=== PATIENT | female | born 1955 | race Hispanic/Latino ===

== ENCOUNTER 2019-10-31 07:49 | Outpatient (CLI) | payer MEDICARE ==
--- NOTE | 2019-10-31 09:07 | BD ---
DEXA BONE MINERAL DENSITY STUDY: HISTORY: Osteoporosis screening. COMPARISON: None. FINDINGS: Lumbar Spine: BMD (g/cm2) L1 0.785 T-Score: -1.9 -0.2 L2 0.788 T-Score: -2.2 -0.4 L3 0.926 T-Score: -1.4 0.5 L4 0.850 T-Score: -1.9 0.0 L1-L4 0.836 T-Score: -1.9 -0.1 WHO classification: Osteopenia. Right: Femoral Neck: 0.496 T-Score: -3.2 -1.6 Total Femur: 0.607 T-Score: -2.7 -1.5 WHO classification: Osteoporosis. Impression: Osteoporosis with elevated fracture risk. POS: OFF
== END 2019-10-31 07:50 | disposition home or self-care (01) ==
LOC: BICMAMMO 07:49
PROVIDERS: ATTEND Family Medicine
DX: Z12.31 Encounter for screening mammogram for malignant neoplasm of breast (principal); M81.6 Localized osteoporosis [Lequesne]
CPT/HCPCS: 77063; 77067; 77080

== ENCOUNTER 2019-11-12 09:51 | Outpatient (CLI) | payer MEDICARE ==
--- NOTE | 2019-11-12 11:27 | MMO ---
Left Breast MAMMO Unilat Diag DDI LT+RYANN. CLINICAL HISTORY: Patient is 64 years old and is seen for additional evaluation requested at current screening. The patient has no family history of breast cancer. The patient has no personal history of cancer. VIEWS: The views performed were: left craniocaudal spot compression with tomosynthesis; left mediolateral oblique spot compression with tomosynthesis; and left mediolateral with tomosynthesis. FILMS COMPARED: The present examination has been compared to prior imaging studies performed at [facility] on 10/31/2019 and 11/12/2019. This study has been interpreted with the assistance of computer-aided detection. MAMMOGRAM FINDINGS: There are scattered fibroglandular densities. Finding 1: There is a round mass measuring 4 millimeters with circumscribed margins seen in the left breast at 3 o'clock. Circumscribed hypoechoic mass on ultrasound. Finding 2: There is an oval mass measuring 4 x 5 mm with circumscribed margins seen in the left breast at 4 o'clock. Complicated small cyst IMPRESSION: FINDING 1: MASS IN THE LEFT BREAST AT 3 O'CLOCK IS PROBABLY BENIGN. FOLLOW-UP IN 6 MONTHS IS RECOMMENDED. FINDING 2: MASS IN THE LEFT BREAST AT 4 O'CLOCK IS PROBABLY BENIGN. FOLLOW-UP IN 6 MONTHS IS RECOMMENDED. THE RESULTS OF THIS EXAM WERE SENT TO THE PATIENT. ACR BI-RADS Category 3 - Probably benign finding - short interval follow-up suggested. [facility] will notify the patient of the need for additional imaging services. MAMMOGRAPHY NOTE: 1. A negative mammogram report should not delay a biopsy if a dominant of clinically suspicious mass is present. 2. Approximately 10% to 15% of breast cancers are not detected by mammography. 3. Adenosis and dense breasts may obscure an underlying neoplasm. Reported by: DAVID MARTINEZ MD Electonically Signed: [id number]
--- NOTE | 2019-11-12 12:20 | ULT ---
LEFT BREAST ULTRASOUND: HISTORY: Followup abnormal finding on mammogram. FINDINGS: In the 3 o'clock position of the left breast 2 cm from the nipple there is a very superficial round c ircumscribed 0.3 cm diameter mass. This corresponds to the round mass on mammogram. In the left breast at 4 o'clock position 2 cm from the nipple there is an oval circumscribed somewhat mixed-appearing solid and cystic mass measuring 0.3 x 0.4 x 0.5 cm in size, possibly a complicated-a ppearing cyst. This corresponds to the oval mass on mammogram. IMPRESSION: Two small circumscribed nodules in the left breast, one at 3 o'clock, the other one at 4 o'clock. By both mammogram and ultrasound these have a probably benign appearance. Followup 6-month left unilat eral diagnostic mammogram and left breast ultrasound is recommended for further assessment. Findings were discussed with the patient who is in agreement to undergo a short-term surveillance 6-m [facility] followup mammogram and ultrasound.
== END 2019-11-12 09:52 | disposition home or self-care (01) ==
LOC: BICMAMMO 09:51
PROVIDERS: ATTEND Family Medicine
DX: R92.1 Mammographic calcification found on diagnostic imaging of breast (principal); N63.21 Unspecified lump in the left breast, upper outer quadrant; N63.23 Unspecified lump in the left breast, lower outer quadrant
CPT/HCPCS: 76642; 77065; G0279

== ENCOUNTER 2020-05-18 10:03 | Outpatient (CLI) | payer MEDICARE ==
--- NOTE | 2020-05-18 10:57 | MMO ---
Left Breast MAMMO Unilat Diag DDI LT+RYANN. CLINICAL HISTORY: Patient is 64 years old and is seen for diagnostic exam. The patient has no family history of breast cancer. The patient has no personal history of cancer. VIEWS: The views performed were: left craniocaudal with tomosynthesis; left mediolateral oblique with tomosynthesis; and left mediolateral with tomosynthesis. FILMS COMPARED: The present examination has been compared to prior imaging studies performed at [facility] on 10/31/2019, 11/12/2019 and 05/18/2020. This study has been interpreted with the assistance of computer-aided detection. MAMMOGRAM FINDINGS: There are scattered fibroglandular densities. There are two stable masses with circumscribed margins seen in the lower-outer region of the left breast. STABLE ULTRASOUND IMPRESSION: STABLE MASSES IN THE LEFT BREAST ARE PROBABLY BENIGN. FOLLOW-UP IN 6 MONTHS IS RECOMMENDED. THE RESULTS OF THIS EXAM WERE SENT TO THE PATIENT. ACR BI-RADS Category 3 - Probably benign finding - short interval follow-up suggested. [facility] will notify the patient of the need for additional imaging services. MAMMOGRAPHY NOTE: 1. A negative mammogram report should not delay a biopsy if a dominant of clinically suspicious mass is present. 2. Approximately 10% to 15% of breast cancers are not detected by mammography. 3. Adenosis and dense breasts may obscure an underlying neoplasm. Reported by: DAVID MARTINEZ MD Electonically Signed: [id number]
--- NOTE | 2020-05-18 12:39 | ULT ---
LEFT BREAST ULTRASOUND: Date: 05/18/2020 HISTORY: Patient returns for 6 month follow-up to evaluate two nodular densities in the left breast seen on pr ior mammogram and ultrasound. FINDINGS: In the 3-4 o'clock position of the left breast, there is again noted to be a round circumscribed hypo echoic mass approximately 0.3 cm in size, as well as an oval circumscribed mass measuring approximate ly 0.3 x 0.4 x 0.5 cm in size. No evidence for associated shadowing or architectural distortion or mi crocalcifications. IMPRESSION: BI-RADS Category 3 - Probably benign findings. Two stable circumscribed slightly hypoechoic masses in the left breast. A 6 month follow-up bilateral mammogram and left breast ultrasound recommended for further assessment. The facility will notify patient of need for additional imaging services. POS: OFF
== END 2020-05-18 10:04 | disposition home or self-care (01) ==
LOC: BICMAMMO 10:03
PROVIDERS: ATTEND Family Medicine
DX: N63.20 Unspecified lump in the left breast, unspecified quadrant (principal)
CPT/HCPCS: 76642; 77065; G0279

== ENCOUNTER 2020-11-19 08:51 | Outpatient (CLI) | payer MEDICARE | END 2020-11-19 08:52 | disposition home or self-care (01) | LOC: BICMAMMO 08:51 | PROVIDERS: ATTEND Family Medicine | DX: N63.20 Unspecified lump in the left breast, unspecified quadrant (principal); R92.8 Other abnormal and inconclusive findings on diagnostic imaging of breast | CPT/HCPCS: 77066; G0279 ==

== ENCOUNTER 2021-02-17 10:00 | Outpatient (CLI) | payer MEDICARE | END 2021-02-17 10:01 | disposition home or self-care (01) | LOC: BICRAD 10:00 | PROVIDERS: ATTEND Family Medicine | DX: M41.25 Other idiopathic scoliosis, thoracolumbar region (principal); M54.2 Cervicalgia; M47.812 Spondylosis without myelopathy or radiculopathy, cervical region; M47.816 Spondylosis without myelopathy or radiculopathy, lumbar region; M47.814 Spondylosis without myelopathy or radiculopathy, thoracic region | CPT/HCPCS: 72040; 72072; 72100 ==

== ENCOUNTER 2021-02-18 12:11 | Outpatient (CLI) | payer MEDICARE | END 2021-02-18 12:12 | disposition home or self-care (01) | LOC: BICMAMMO 12:11 | PROVIDERS: ATTEND Internal Medicine | DX: M81.0 Age-related osteoporosis without current pathological fracture (principal) | CPT/HCPCS: 77080 ==

== ENCOUNTER 2021-07-21 08:40 | Outpatient (CLI) | payer MEDICARE | END 2021-07-21 08:41 | disposition home or self-care (01) | LOC: CT 08:40 | PROVIDERS: ATTEND Internal Medicine Cardiovascular Disease | DX: I82.220 Acute embolism and thrombosis of inferior vena cava (principal) | CPT/HCPCS: 71260; 74177; 82565 ==

== ENCOUNTER 2021-07-22 16:54 | Emergency (ER) | payer MEDICARE ==
[2021-07-22 17:30] LABS: #Basophils 0.1 thou/uL (0.0-0.2); #Eosinphils 0.2 thou/uL (0.0-0.7); #Lymphocytes 1.7 thou/uL (1.20-3.40); #Monocytes 0.4 thou/uL (0.11-0.59); #Neutrophils 2.4 thou/uL (1.40-6.50); %Basophils 1.4 % (0.0-1.0); %Eosinophils 3.3 % (0.0-10.0); %Lymphocytes 36.1 % (21.0-51.0); %Monocytes 8.6 % (0.0-10.0); %Neutrophils 50.6 % (42.0-75.0); Hemoglobin 11.9 g/dL (12.0-16.0); Mean Corpuscular HGB CONC 34.8 g/dL (32.0-36.0); Mean Corpuscular Volume 94.7 fL (78.0-98.0); Mean Platelet Volume 7.9 fL (7.4-10.4); Platelet Count 201 thou/uL (130-400); RBC Distribution Width 12.1 % (11.5-14.5); Red Blood Cell (RBC) Count 3.61 mill/uL (4.20-5.40); White Blood Cell (WBC) Count 4.8 thou/uL (4.8-10.8)
[2021-07-22 17:58] LABS: ALT (SGPT) 12 U/L (8-55); AST (SGOT) 17 U/L (5-34); Albumin 4.1 g/dL (3.4-4.8); Alkaline Phosphatase 32 U/L (40-110); Anion Gap 14 mmol/L (10-20); BUN (Urea Nitrogen) 12 mg/dL (9.8-20.1); Bilirubin, Total 0.2 mg/dL (0.2-1.2); Calc. Creatinine Clearance 0 mL/min (70-130); Calcium 9.1 mg/dL (7.8-10.44); Carbon Dioxide 27 mmol/L (23-31); Chloride 95 mmol/L (98-107); Globulin 2.5 g/dL (2.4-3.5); Glucose 90 mg/dL (80-115); Potassium 3.7 mmol/L (3.5-5.1); Protein, Total 6.6 g/dL (5.8-8.1); Sodium 132 mmol/L (136-145)
== END 2021-07-22 18:36 | disposition home or self-care (01) ==
LOC: ERS 16:54
DX: R07.89 Other chest pain (principal); E03.9 Hypothyroidism, unspecified; Z79.899 Other long term (current) drug therapy; Z79.01 Long term (current) use of anticoagulants
CPT/HCPCS: 36415; 71045; 80053; 84484; 85025; 93005

== ENCOUNTER 2021-08-11 11:38 | Inpatient (IN) | payer MEDICARE ==
[2021-08-11 12:45] LABS: #Basophils 0.1 thou/uL (0.0-0.2); #Eosinphils 0.1 thou/uL (0.0-0.7); #Lymphocytes 1.5 thou/uL (1.20-3.40); #Monocytes 0.4 thou/uL (0.11-0.59); #Neutrophils 2.2 thou/uL (1.40-6.50); %Basophils 1.2 % (0.0-1.0); %Eosinophils 2.4 % (0.0-10.0); %Monocytes 10.4 % (0.0-10.0); Hemoglobin 12.2 g/dL (12.0-16.0); Mean Corpuscular HGB CONC 33.7 g/dL (32.0-36.0); Mean Corpuscular Hemoglobin 32.7 pg (27.0-31.0); Mean Platelet Volume 7.6 fL (7.4-10.4); Platelet Count 217 thou/uL (130-400); RBC Distribution Width 12.3 % (11.5-14.5); Red Blood Cell (RBC) Count 3.72 mill/uL (4.20-5.40); White Blood Cell (WBC) Count 4.2 thou/uL (4.8-10.8)
[2021-08-11 13:07] LABS: ALT (SGPT) 12 U/L (8-55); AST (SGOT) 17 U/L (5-34); Albumin 4.2 g/dL (3.4-4.8); Alkaline Phosphatase 27 U/L (40-110); Anion Gap 10 mmol/L (10-20); BUN (Urea Nitrogen) 11 mg/dL (9.8-20.1); Bilirubin, Total 0.3 mg/dL (0.2-1.2); Calc. Creatinine Clearance 0 mL/min (70-130); Calcium 8.7 mg/dL (7.8-10.44); Carbon Dioxide 30 mmol/L (23-31); Chloride 97 mmol/L (98-107); Globulin 2.6 g/dL (2.4-3.5); Glucose 86 mg/dL (80-115); Potassium 3.9 mmol/L (3.5-5.1); Protein, Total 6.8 g/dL (5.8-8.1); Sodium 133 mmol/L (136-145)
[2021-08-11 14:29] LABS: Bilirubin Negative (Negative); Blood, Urine Negative (Negative); Clarity Clear (Clear); Glucose, Urine (Dipstick) Normal (Negative); Ketone, Urine Negative (Negative); Leukocyte Negative Leu/uL (Negative); Nitrite Negative (Negative); Protein, Urine (Dipstick) Negative (Neg-Trace); Specific Gravity, Urine 1.003 (1.002-1.036); Urobilinogen Normal mg/dL (Less than 2); pH, Urine 7.5 (5.0-9.0)
[2021-08-11 18:04] VITALS: BMI 22.4
[2021-08-11] MEDS ORDERED: Acetaminophen 325 MG TAB PO PRN (18:15)
[2021-08-11] MEDS ORDERED: Ondansetron ODT 4 MG TAB SL PRN (18:15)
[2021-08-11] MEDS ORDERED: Ondansetron PF 4 MG/2 ML Vial IVP PRN (18:15)
[2021-08-11 18:26] LABS: Troponin I Less than 0.010 ng/mL (< 0.028)
[2021-08-11] MEDS ORDERED: Nitroglycerin 0.4 MG TAB (25 Tab Bottle) SL PRN (18:59)
[2021-08-11] MEDS ORDERED: Senokot S 8.6-50 MG TAB PO PRN (19:00)
[2021-08-11] MEDS: Apixaban 5 MG TAB PO SCH (20:09)
[2021-08-11] MEDS: Sodium Chloride 0.9% 1,000 ML IV SCH (20:10)
[2021-08-11 20:48] LABS: SARS-CoV-2 NAA Rapid Test Not Detected (NotDetected)
[2021-08-11 21:08] LABS: Troponin I Less than 0.010 ng/mL (< 0.028)
[2021-08-11] MEDS ORDERED: Loratadine 10 MG TAB PO SCH (23:00)
[2021-08-12] MEDS: Levothyroxine Sodium 100 MCG TAB PO SCH (04:44)
[2021-08-12 04:56] LABS: #Basophils 0.1 thou/uL (0.0-0.2); #Eosinphils 0.2 thou/uL (0.0-0.7); #Lymphocytes 1.9 thou/uL (1.20-3.40); #Monocytes 0.4 thou/uL (0.11-0.59); %Basophils 1.2 % (0.0-1.0); %Eosinophils 3.5 % (0.0-10.0); %Lymphocytes 41.9 % (21.0-51.0); %Neutrophils 44.4 % (42.0-75.0); Hemoglobin 11.7 g/dL (12.0-16.0); Mean Corpuscular HGB CONC 34.3 g/dL (32.0-36.0); Mean Corpuscular Hemoglobin 33.1 pg (27.0-31.0); Mean Corpuscular Volume 96.6 fL (78.0-98.0); Mean Platelet Volume 7.4 fL (7.4-10.4); Platelet Count 201 thou/uL (130-400); RBC Distribution Width 12.2 % (11.5-14.5); Red Blood Cell (RBC) Count 3.54 mill/uL (4.20-5.40); White Blood Cell (WBC) Count 4.5 thou/uL (4.8-10.8)
[2021-08-12 05:28] LABS: Anion Gap 11 mmol/L (10-20); BUN (Urea Nitrogen) 13 mg/dL (9.8-20.1); Calc. Creatinine Clearance 79 mL/min (70-130); Calcium 8.5 mg/dL (7.8-10.44); Carbon Dioxide 26 mmol/L (23-31); Chloride 102 mmol/L (98-107); Cholesterol 186 mg/dl (< 200 Desired); Glucose 88 mg/dL (80-115); HDL Cholesterol 62 mg/dL (>60 Neg Risk); LDL Cholesterol, Calculated 116 mg/dL; Potassium 3.4 mmol/L (3.5-5.1); Sodium 136 mmol/L (136-145); Triglycerides 40 mg/dL (Less than 150)
[2021-08-12 06:07] LABS: Eosinophils 3 % (0-10); Lymphocytes 43 % (21-51); Monocytes 10 % (0-10)
[2021-08-12] MEDS: Apixaban 5 MG TAB PO SCH (07:46)
[2021-08-12] MEDS: Sodium Chloride 0.9% 1,000 ML IV SCH (07:57)
[2021-08-12] MEDS ORDERED: Loratadine 10 MG TAB PO SCH ×2 (09:00→21:00)
[2021-08-12] MEDS ORDERED: Acetaminophen 325 MG TAB PO SCH (12:15)
[2021-08-12] MEDS ORDERED: Calcium Carbonate 500 MG ChewTAB PO PRN (14:55)
[2021-08-12] MEDS ORDERED: Atorvastatin Calcium 40 MG TAB PO SCH (21:00)
[2021-08-12] MEDS ORDERED: Communication Order-Pharmacy FS SCH (23:45)
[2021-08-12] MEDS ORDERED: Sodium Chloride 0.9% 500 ML IV SCH (23:59)
[2021-08-13] MEDS: Levothyroxine Sodium 100 MCG TAB PO SCH (05:40)
[2021-08-13] MEDS ORDERED: predniSONE 20 MG TAB PO SCH (08:45)
[2021-08-13] MEDS ORDERED: Iopamidol 370 76% 100 ML VIAL ONE (09:00)
[2021-08-13] MEDS ORDERED: Aspirin Chewable 81 MG TAB PO SCH (09:00)
[2021-08-13] MEDS ORDERED: Heparin 10,000 UNITS/ 10 ML VIAL ONE (10:13)
[2021-08-13] MEDS ORDERED: Verapamil 5 MG/2 ML VIAL ONE (10:13)
[2021-08-13] MEDS ORDERED: Nitroglycerin 100MG/250ML BOT 250 ML ONE (10:13)
[2021-08-13] MEDS ORDERED: Midazolam HCl 2 mg/2 ml Vial ONE (10:42)
[2021-08-13] MEDS ORDERED: Fentanyl 100 MCG/2 ML VIAL ONE (10:43)
[2021-08-13] MEDS ORDERED: diphenhydrAMINE 50 MG/ML VIAL ONE (10:49)
[2021-08-13] MEDS ORDERED: Sodium Chloride 0.9% 500 ML IV SCH (11:15)
[2021-08-13] MEDS ORDERED: Acetaminophen/Codeine 30-300mg Tablet PO PRN (11:15)
[2021-08-13] MEDS ORDERED: Sodium Chloride 0.9% 200 ML IV PRN (11:15)
[2021-08-13 15:36] VITALS: BP 119/70; TEMP 97.6
== END 2021-08-13 17:20 | disposition home or self-care (01) | DRG 287 ==
LOC: ERS 11:38 → 2SW 17:25 → OBSVTOIN 08-12 17:47
PROVIDERS: ADMIT Family Medicine; ATTEND Internal Medicine
PROC: 4A023N7 Measurement of Cardiac Sampling and Pressure, Left Heart, Percutaneous Approach (ICD-10-PCS; principal; 2021-08-13)
PROC: B2111ZZ Fluoroscopy of Multiple Coronary Arteries using Low Osmolar Contrast (ICD-10-PCS; 2021-08-13)
PROC: B2151ZZ Fluoroscopy of Left Heart using Low Osmolar Contrast (ICD-10-PCS; 2021-08-13)
PROC: 4A033BC Measurement of Arterial Pressure, Coronary, Percutaneous Approach (ICD-10-PCS; 2021-08-13)
DX: R07.89 Other chest pain (principal); E87.1 Hypo-osmolality and hyponatremia; Z20.822 Contact with and (suspected) exposure to COVID-19; M41.9 Scoliosis, unspecified; J30.9 Allergic rhinitis, unspecified; F41.9 Anxiety disorder, unspecified; F32.A Depression, unspecified; E78.5 Hyperlipidemia, unspecified; E03.9 Hypothyroidism, unspecified; Z90.49 Acquired absence of other specified parts of digestive tract; Z88.8 Allergy status to other drugs, medicaments and biological substances; Z91.013 Allergy to seafood; Z90.710 Acquired absence of both cervix and uterus; Z82.49 Family history of ischemic heart disease and other diseases of the circulatory system; Z79.01 Long term (current) use of anticoagulants; Z79.890 Hormone replacement therapy; Z79.899 Other long term (current) drug therapy
CPT/HCPCS: 0240U; 36415; 71046; 80048; 80053; 80061; 81003; 84443; 84484; 85007; 85025; 85027; 85652; 86140; 93005; 93458; G0378; J1200; J1644; J2250; J3010; J7030; J7050; J7512; Q9967

== ENCOUNTER 2021-10-20 14:09 | Outpatient (CLI) | payer MEDICARE | END 2021-10-20 14:10 | disposition home or self-care (01) | LOC: CTENTCT 14:09 | PROVIDERS: ATTEND Specialist | DX: J32.8 Other chronic sinusitis (principal) | CPT/HCPCS: 70486 ==

== ENCOUNTER 2022-06-02 14:26 | Outpatient (CLI) | payer MEDICARE | END 2022-06-02 14:27 | disposition home or self-care (01) | LOC: BICMRI 14:26 | PROVIDERS: ATTEND Family Medicine | DX: M54.2 Cervicalgia (principal); M54.15 Radiculopathy, thoracolumbar region; M47.812 Spondylosis without myelopathy or radiculopathy, cervical region; M51.36 Other intervertebral disc degeneration, lumbar region; M48.04 Spinal stenosis, thoracic region; M48.05 Spinal stenosis, thoracolumbar region; M48.07 Spinal stenosis, lumbosacral region; M48.061 Spinal stenosis, lumbar region without neurogenic claudication; M47.816 Spondylosis without myelopathy or radiculopathy, lumbar region; M41.9 Scoliosis, unspecified; M51.34 Other intervertebral disc degeneration, thoracic region | CPT/HCPCS: 72141; 72148 ==

== ENCOUNTER 2022-08-04 15:55 | Outpatient (CLI) | payer MEDICARE | END 2022-08-04 15:56 | disposition home or self-care (01) | LOC: BICMAMMO 15:55 | PROVIDERS: ATTEND Family Medicine | DX: Z12.31 Encounter for screening mammogram for malignant neoplasm of breast (principal); R92.1 Mammographic calcification found on diagnostic imaging of breast | CPT/HCPCS: 77063; 77067 ==

== ENCOUNTER 2023-06-29 13:49 | Outpatient (CLI) | payer MEDICARE | END 2023-06-29 13:50 | disposition home or self-care (01) | LOC: BICMAMMO 13:49 | PROVIDERS: ATTEND Internal Medicine Hematology & Oncology | DX: M81.8 Other osteoporosis without current pathological fracture (principal) | CPT/HCPCS: 77080 ==

== ENCOUNTER 2023-07-09 15:56 | Inpatient (IN) | payer MEDICARE ==
[2023-07-09 16:17] LABS: #Basophils 0.1 thou/uL (0.0-0.2); #Eosinphils 0.1 thou/uL (0.0-0.7); #Monocytes 0.5 thou/uL (0.11-0.59); #Neutrophils 4.4 thou/uL (1.40-6.50); %Basophils 0.7 % (0.0-1.0); %Eosinophils 0.7 % (0.0-10.0); %Lymphocytes 24.5 % (21.0-51.0); %Monocytes 7.9 % (0.0-10.0); %Neutrophils 65.9 % (42.0-75.0); Hematocrit 35.3 % (36.0-47.0); Hemoglobin 12.6 g/dL (12.0-16.0); Mean Corpuscular HGB CONC 35.7 g/dL (32.0-36.0); Mean Corpuscular Hemoglobin 31.8 pg (27.0-31.0); Mean Corpuscular Volume 89.1 fl (78.0-98.0); Mean Platelet Volume 9.2 fL (7.4-10.4); Platelet Count 270 10x3/uL (130-400); RBC Distribution Width 12.8 % (11.5-14.5); Red Blood Cell (RBC) Count 3.96 mill/uL (4.20-5.40); White Blood Cell (WBC) Count 6.7 10x3/uL (4.8-10.8)
[2023-07-09 16:40] LABS: ALT (SGPT) 14 U/L (8-55); AST (SGOT) 16 U/L (5-34); Albumin 4.7 g/dL (3.4-4.8); Alkaline Phosphatase 36 U/L (40-110); Anion Gap 14 mmol/L (10-20); BUN (Urea Nitrogen) 8 mg/dL (9.8-20.1); Bilirubin, Total 0.4 mg/dL (0.2-1.2); Calc. Creatinine Clearance 0 mL/min (70-130); Calcium 9.6 mg/dL (7.8-10.44); Carbon Dioxide 29 mmol/L (23-31); Chloride 82 mmol/L (98-107); Estimated GFR 82; Globulin 2.1 g/dL (2.4-3.5); Glucose 110 mg/dL (80-115); Lipase 34 U/L (8-78); Potassium 3.5 mmol/L (3.5-5.1); Protein, Total 6.8 g/dL (5.8-8.1); Sodium 121 mmol/L (136-145)
[2023-07-09 16:45] LABS: Troponin I Less than 0.010 ng/mL (< 0.028)
[2023-07-09 18:38] LABS: Anion Gap 16 mmol/L (10-20); BUN (Urea Nitrogen) 7 mg/dL (9.8-20.1); Calc. Creatinine Clearance 0 mL/min (70-130); Calcium 9.3 mg/dL (7.8-10.44); Carbon Dioxide 26 mmol/L (23-31); Chloride 85 mmol/L (98-107); Estimated GFR 88; Glucose 91 mg/dL (80-115); Potassium 3.4 mmol/L (3.5-5.1); Sodium 124 mmol/L (136-145)
[2023-07-09] MEDS ORDERED: Ondansetron PF 4 MG/2 ML Vial IVP PRN (20:30)
[2023-07-09] MEDS ORDERED: Acetaminophen 325 MG TAB PO PRN (20:30)
[2023-07-09] MEDS ORDERED: Ondansetron ODT 4 MG TAB SL PRN (20:30)
[2023-07-09 22:15] LABS: Anion Gap 13 mmol/L (10-20); BUN (Urea Nitrogen) 6 mg/dL (9.8-20.1); Calc. Creatinine Clearance 0 mL/min (70-130); Calcium 8.9 mg/dL (7.8-10.44); Carbon Dioxide 25 mmol/L (23-31); Chloride 93 mmol/L (98-107); Estimated GFR 95; Glucose 87 mg/dL (80-115); Sodium 128 mmol/L (136-145)
[2023-07-09] MEDS ORDERED: Potassium Chloride 20 MEQ TAB PO SCH (23:30)
[2023-07-09 23:35] VITALS: BMI 22.0
[2023-07-09 23:44] LABS: Bacteria/HPF None Seen HPF (None Seen); Bilirubin Negative (Negative); Blood, Urine Negative (Negative); CAUTI Indications for Culture Dysuria,urgency,freq; Clarity Clear (Clear); Glucose, Urine (Dipstick) Normal (Negative); Ketone, Urine 10 mg/dL (Negative); Leukocyte Negative Leu/uL (Negative); Nitrite Negative (Negative); Protein, Urine (Dipstick) Negative (Neg-Trace); RBC/HPF None Seen HPF (0-3); Specific Gravity, Urine 1.004 (1.002-1.036); Squamous Epithelial 0-3 HPF (0-3); Urobilinogen Normal mg/dL (Less than 2); WBC/HPF 0-3 HPF (0-3); pH, Urine 7.5 (5.0-9.0)
[2023-07-09 23:50] LABS: Urine Culture Reflex No No
[2023-07-10] MEDS ORDERED: Cyclobenzaprine 10 MG TAB PO SCH (01:00)
[2023-07-10] MEDS: Famotidine 20 MG TAB PO SCH ×3 (01:04→20:51)
[2023-07-10 02:12] LABS: Anion Gap 14 mmol/L (10-20); BUN (Urea Nitrogen) 6 mg/dL (9.8-20.1); Calc. Creatinine Clearance 70 mL/min (70-130); Carbon Dioxide 23 mmol/L (23-31); Chloride 96 mmol/L (98-107); Estimated GFR 90; Glucose 108 mg/dL (80-115); Potassium 3.2 mmol/L (3.5-5.1); Sodium 130 mmol/L (136-145)
[2023-07-10 04:33] LABS: #Basophils 0.1 thou/uL (0.0-0.2); #Eosinphils 0.1 thou/uL (0.0-0.7); #Monocytes 0.5 thou/uL (0.11-0.59); #Neutrophils 3.3 thou/uL (1.40-6.50); %Basophils 0.9 % (0.0-1.0); %Eosinophils 0.9 % (0.0-10.0); %Lymphocytes 27.2 % (21.0-51.0); %Monocytes 9.6 % (0.0-10.0); %Neutrophils 61.2 % (42.0-75.0); Hematocrit 34.1 % (36.0-47.0); Hemoglobin 12.1 g/dL (12.0-16.0); Mean Corpuscular HGB CONC 35.5 g/dL (32.0-36.0); Mean Corpuscular Volume 90.2 fl (78.0-98.0); Mean Platelet Volume 9.3 fL (7.4-10.4); Platelet Count 257 10x3/uL (130-400); Red Blood Cell (RBC) Count 3.78 mill/uL (4.20-5.40); White Blood Cell (WBC) Count 5.3 10x3/uL (4.8-10.8)
[2023-07-10 04:54] LABS: Anion Gap 11 mmol/L (10-20); BUN (Urea Nitrogen) 8 mg/dL (9.8-20.1); Calc. Creatinine Clearance 69 mL/min (70-130); Calcium 8.9 mg/dL (7.8-10.44); Carbon Dioxide 26 mmol/L (23-31); Chloride 96 mmol/L (98-107); Estimated GFR 89; Glucose 100 mg/dL (80-115); Potassium 3.6 mmol/L (3.5-5.1); Sodium 129 mmol/L (136-145)
[2023-07-10 05:14] LABS: T4 7.56 ug/dL (4.87-11.72); Thyroid Stimulating Hormone 0.2914 uIU/mL (0.35-4.94)
[2023-07-10] MEDS ORDERED: Levothyroxine Sodium 100 MCG TAB PO SCH (06:00)
[2023-07-10 06:19] LABS: Anion Gap 11 mmol/L (10-20); BUN (Urea Nitrogen) 7 mg/dL (9.8-20.1); Calc. Creatinine Clearance 70 mL/min (70-130); Calcium 9.1 mg/dL (7.8-10.44); Carbon Dioxide 26 mmol/L (23-31); Chloride 96 mmol/L (98-107); Estimated GFR 90; Glucose 95 mg/dL (80-115); Potassium 3.6 mmol/L (3.5-5.1); Sodium 129 mmol/L (136-145)
[2023-07-10] MEDS: Cyclobenzaprine 10 MG TAB PO SCH ×2 (08:12→20:52)
[2023-07-10] MEDS: Nystatin Cream 15 GM TUBE TOP SCH ×2 (08:15→20:52)
[2023-07-10] MEDS ORDERED: Trospium 20 MG TAB PO SCH (09:00)
[2023-07-10] MEDS ORDERED: FLU VACC QS2023(65UP)/MF59C/PF 60 MCG/0.5 ML SYRINGE IM ONE (09:00)
[2023-07-10 10:43] LABS: Anion Gap 14 mmol/L (10-20); BUN (Urea Nitrogen) 10 mg/dL (9.8-20.1); Calc. Creatinine Clearance 67 mL/min (70-130); Calcium 9.2 mg/dL (7.8-10.44); Carbon Dioxide 23 mmol/L (23-31); Chloride 97 mmol/L (98-107); Estimated GFR 86; Glucose 99 mg/dL (80-115); Potassium 3.7 mmol/L (3.5-5.1); Sodium 130 mmol/L (136-145)
[2023-07-10 12:25] LABS: Anion Gap 13 mmol/L (10-20); BUN (Urea Nitrogen) 10 mg/dL (9.8-20.1); Calc. Creatinine Clearance 65 mL/min (70-130); Carbon Dioxide 20 mmol/L (23-31); Chloride 99 mmol/L (98-107); Estimated GFR 83; Glucose 91 mg/dL (80-115); Sodium 128 mmol/L (136-145)
[2023-07-10] MEDS ORDERED: Ondansetron PF 4 MG/2 ML Vial IVP PRN (13:39)
[2023-07-10] MEDS ORDERED: Acetaminophen 325 MG TAB PO PRN (13:40)
[2023-07-11] MEDS ORDERED: Levothyroxine Sodium 88 MCG TAB PO SCH (06:00)
[2023-07-11 07:24] LABS: Anion Gap 11 mmol/L (10-20); BUN (Urea Nitrogen) 13 mg/dL (9.8-20.1); Calc. Creatinine Clearance 58 mL/min (70-130); Calcium 8.7 mg/dL (7.8-10.44); Carbon Dioxide 27 mmol/L (23-31); Chloride 100 mmol/L (98-107); Estimated GFR 73; Glucose 90 mg/dL (80-115); Sodium 134 mmol/L (136-145)
[2023-07-11] MEDS: Famotidine 20 MG TAB PO SCH (08:14)
[2023-07-11] MEDS: Cyclobenzaprine 10 MG TAB PO SCH (08:15)
[2023-07-11] MEDS: Nystatin Cream 15 GM TUBE TOP SCH (08:15)
[2023-07-11 14:53] VITALS: BP 153/87; TEMP 97.5
== END 2023-07-11 15:19 | disposition home or self-care (01) | DRG 641 ==
LOC: ERS 15:56 → IMCU/EMU 20:13 → T4-B 07-10 13:33
PROVIDERS: ADMIT Student in an Organized Health Care Education/Training Program; ATTEND Hospitalist
DX: E87.1 Hypo-osmolality and hyponatremia (principal); E03.9 Hypothyroidism, unspecified; I12.9 Hypertensive chronic kidney disease with stage 1 through stage 4 chronic kidney disease, or unspecified chronic kidney disease; R63.1 Polydipsia; E87.6 Hypokalemia; N18.2 Chronic kidney disease, stage 2 (mild); K00.0 Anodontia; Z91.013 Allergy to seafood; Z79.890 Hormone replacement therapy; Z79.899 Other long term (current) drug therapy; Z90.710 Acquired absence of both cervix and uterus; Z90.49 Acquired absence of other specified parts of digestive tract; Z98.890 Other specified postprocedural states; Z80.51 Family history of malignant neoplasm of kidney; Z82.49 Family history of ischemic heart disease and other diseases of the circulatory system
CPT/HCPCS: 36415; 71045; 76770; 80048; 80053; 81001; 82550; 83690; 83930; 83935; 84300; 84436; 84439; 84443; 84484; 85025; 90471; 90694; 93005; 94760; 96360; G0008

== ENCOUNTER 2023-08-22 08:12 | Outpatient (CLI) | payer MEDICARE | END 2023-08-22 08:13 | disposition home or self-care (01) | LOC: BICMAMMO 08:12 | PROVIDERS: ATTEND Family Medicine | DX: Z12.31 Encounter for screening mammogram for malignant neoplasm of breast (principal) | CPT/HCPCS: 77063; 77067 ==

== ENCOUNTER 2023-09-15 09:33 | Outpatient (CLI) | payer MEDICARE | END 2023-09-15 09:34 | disposition home or self-care (01) | LOC: SCSMRI 09:33 | PROVIDERS: ATTEND Psychiatry & Neurology Neurology | DX: M51.16 Intervertebral disc disorders with radiculopathy, lumbar region (principal); M41.9 Scoliosis, unspecified; M48.061 Spinal stenosis, lumbar region without neurogenic claudication; M48.07 Spinal stenosis, lumbosacral region | CPT/HCPCS: 72148 ==

== ENCOUNTER 2024-08-23 12:21 | Outpatient (CLI) | payer MEDICARE | END 2024-08-23 12:22 | disposition home or self-care (01) | LOC: BICMAMMO 12:21 | PROVIDERS: ATTEND Family Medicine | DX: Z12.31 Encounter for screening mammogram for malignant neoplasm of breast (principal); M81.8 Other osteoporosis without current pathological fracture; M85.89 Other specified disorders of bone density and structure, multiple sites | CPT/HCPCS: 77063; 77067; 77080 ==

== ENCOUNTER 2025-07-23 13:16 | Outpatient (CLI) | payer MEDICARE | END 2025-07-23 13:17 | disposition home or self-care (01) | LOC: MRI 13:16 | PROVIDERS: ATTEND Family Medicine | DX: M51.360 Other intervertebral disc degeneration, lumbar region with discogenic back pain only (principal); M41.9 Scoliosis, unspecified; M47.816 Spondylosis without myelopathy or radiculopathy, lumbar region; M48.061 Spinal stenosis, lumbar region without neurogenic claudication; M48.07 Spinal stenosis, lumbosacral region; M71.38 Other bursal cyst, other site | CPT/HCPCS: 72148 ==

== ENCOUNTER 2025-08-26 13:25 | Outpatient (CLI) | payer MEDICARE | END 2025-08-26 13:26 | disposition home or self-care (01) | LOC: BICMAMMO 13:25 | PROVIDERS: ATTEND Nurse Practitioner Adult Health | DX: M81.8 Other osteoporosis without current pathological fracture (principal) | CPT/HCPCS: 77080 ==